=== PATIENT | female | born 1955 ===

== ENCOUNTER 2017-05-26 16:26 | Inpatient (IN) | payer SELFPAY ==
[2017-05-26 17:39] LABS: #Lymphocytes 2.5 thou/uL (1.20-3.40); #Monocytes 0.9 thou/uL (0.11-0.59); #Neutrophils 10.2 thou/uL (1.40-6.50); %Basophils 0.2 % (0.0-1.0); %Eosinophils 0.1 % (0.0-10.0); %Lymphocytes 18.5 % (21.0-51.0); %Monocytes 6.5 % (0.0-10.0); Hematocrit 51.5 % (36.0-47.0); Mean Platelet Volume 9.6 fL (7.4-10.4); Red Blood Cell (RBC) Count 5.33 mill/uL (4.20-5.40); White Blood Cell (WBC) Count 13.6 thou/uL (4.8-10.8)
[2017-05-26 17:55] LABS: Lactic Acid - Sepsis 2.7 mmol/L (0.5-2.2)
[2017-05-26 17:57] LABS: ALT (SGPT) 38 U/L (8-55); AST (SGOT) 27 U/L (5-34); Alkaline Phosphatase 185 U/L (40-150); Anion Gap 17 mmol/L (10-20); BUN (Urea Nitrogen) 17 mg/dL (9.8-20.1); Bilirubin, Total 0.4 mg/dL (0.2-1.2); Calc. Creatinine Clearance 0 mL/min (70-130); Calcium 8.3 mg/dL (7.8-10.44); Carbon Dioxide 24 mmol/L (22-29); Chloride 115 mmol/L (98-107); Estimated GFR-MDRD 46; Globulin 4.7 g/dL (2.4-3.5); Protein, Total 7.8 g/dL (6.0-8.3)
[2017-05-26] MEDS ORDERED: Acetaminophen 325 MG TAB PO PRN (19:41)
[2017-05-26] MEDS ORDERED: Dextrose 5% in Water 1,000 ML IV PRN (19:41)
[2017-05-26] MEDS ORDERED: Ondansetron HCl/PF 4 MG/2 ML Vial IVP PRN (19:41)
[2017-05-26] MEDS ORDERED: Dextrose 50% Abboject 50 ML SYRINGE SLOW IVP PRN (19:41)
[2017-05-26 19:43] LABS: Acetaminophen Less than 6.0 mcg/mL (10.0-30.0); Salicylate Less than 8.0 mg/dL (15.0-30.0)
[2017-05-26 19:55] LABS: Bilirubin Negative (Negative); Blood, Urine Moderate (Negative); Glucose, Urine (Dipstick) >=1000 mg/dL (Negative); Ketone, Urine 15 mg/dL (Negative); Nitrite Positive (Negative); Protein, Urine (Dipstick) 30 mg/dL (Neg-Trace)
[2017-05-26] MEDS ORDERED: hydrALAZINE 20 MG/ML VIAL SLOW IVP PRN (19:55)
[2017-05-26 20:01] LABS: Bacteria/HPF 4+ HPF (None Seen); Hyaline Casts/LPF 0-3 HYALINE CAST LPF (0-3 Hyaline); Squamous Epithelial 0-3 HPF (0-3)
[2017-05-26 20:05] LABS: Amphetamine Detected (NotDetected); Methadone Not Detected (NotDetected); Methamphetamine Detected (NotDetected)
[2017-05-26] MEDS ORDERED: Lorazepam 2 MG/ML VIAL SLOW IVP PRN (20:25)
[2017-05-26 20:28] VITALS: BMI 25.1
[2017-05-26 20:30] LABS: Lactic Acid - Sepsis 2.1 mmol/L (0.5-2.2)
--- NOTE | 2017-05-26 20:34 | CT ---
CT OF HEAD NONCONTRAST: 05/26/17 No prior comparison. CLINICAL HISTORY: Altered mental status. FINDINGS: Patient motion degrades image quality and limits assessment. There is encephalomalacia of the right occipital lobe and multifocal cavitary lacunar infarction involving the right cerebellar hemisphere. There is mild chronic microvascular ischemic disease of the cerebral white matter. Parenchymal atro phy is present with compensatory dilatation of ventricular system. IMPRESSION: 1. No acute intracranial hemorrhage or mass effect. 2. Atrophy, chronic ischemic disease and multifocal remote infarctions. POS: [facility]
[2017-05-26] MEDS: Sodium Chloride 0.45% 1,000 ML IV SCH (20:35)
[2017-05-26 20:40] LABS: Troponin I Less than 0.010 ng/mL (< 0.028)
[2017-05-26] MEDS: Famotidine/PF 20 mg/2ml Vial SLOW IVP SCH (20:54)
[2017-05-26] MEDS: Cefepime 2 GM, Syringe 2.5 ML in Sterile Water 10 ML SLOW IVP SCH (20:54)
[2017-05-26] MEDS: Docusate 100 MG CAP PO SCH (20:54)
[2017-05-26] MEDS ORDERED: Cefepime 2 GM in Sodium Chloride 0.9% 100 ML IVPB SCH (21:00)
[2017-05-27] MEDS ORDERED: HumaLOG 300 UNITS/3 ML VIAL SC SCH ×2 (01:30→01:45)
[2017-05-27 02:15] LABS: #Basophils 0.1 thou/uL (0.0-0.2); #Lymphocytes 2.6 thou/uL (1.20-3.40); #Monocytes 1.1 thou/uL (0.11-0.59); #Neutrophils 11.6 thou/uL (1.40-6.50); %Basophils 0.4 % (0.0-1.0); %Eosinophils 0.2 % (0.0-10.0); %Monocytes 7.1 % (0.0-10.0); Hematocrit 48.4 % (36.0-47.0); Mean Platelet Volume 9.9 fL (7.4-10.4); Red Blood Cell (RBC) Count 4.98 mill/uL (4.20-5.40); White Blood Cell (WBC) Count 15.4 thou/uL (4.8-10.8)
--- NOTE | 2017-05-27 02:24 | HP ---
CHIEF COMPLAINT: Altered mental state. HISTORY OF PRESENT ILLNESS: This is a 61-year-old pleasant lady who was apparently in usual state o f health, was brought in by the family for altered mental state to [facility], out there, she had init ial evaluation and was found to have urinary tract infection and evidence of amphetamines in her sys tem and she was given one dose of vancomycin, Rocephin, and 15 units of IV insulin for the high bloo d sugar and 2 liters and sent out here for further evaluation and treatment. She is still lethargic and most of the history is obtained from the ER physician and the chart. PAST MEDICAL HISTORY: Significant for diabetes mellitus, bipolar disorder, back pain, depression, G ERD, hypertension, hypothyroidism, sleep apnea, hepatitis C, and schizophrenia. SOCIAL HISTORY: Positive for drug use like cocaine, maybe history of IV drug use too. FAMILY HISTORY: Cannot be obtained. PAST SURGICAL HISTORY: Not obtained. MEDICATIONS: Please see MAR. ALLERGIES: Cannot be obtained. REVIEW OF SYSTEM: Cannot be obtained as patient is still lethargic. The patient is not cooperative . PHYSICAL EXAMINATION: VITAL SIGNS: Blood pressure is 121/66, pulse is 103, respirations 18, temperature afebrile. GENERAL: Patient is lying in bed, tachycardic with altered mental status and lethargic. She opens and moans to painful stimuli. HEENT: Atraumatic, normocephalic. Pupils equally round, react to light. Extraocular movements are intact. Mucous membranes are extremely dry. NECK: No JVD. CHEST: Breath sounds. There are no rales or rhonchi. HEART: S1, S2 normal, no murmur, but tachycardic. ABDOMEN: Soft. Bowel sounds present. EXTREMITIES: No cyanosis, clubbing, or edema. Distal pulses present. NEUROLOGIC: Cannot be evaluated. LABORATORY AND IMAGING DATA: CT head is pending. EKG shows tachycardia. Potassium is 3.6, creatin ine is 1.2, albumin is 3.1. Lactic acid is 4, which has come down to 2.7. WBC count is 13.6, hemog lobin is 16. ASSESSMENT AND PLAN: 1. Altered mental state, possibly secondary to drug use. We will repeat urine drug screening. We will do urine culture, blood culture, and follow CT scan results. We will admit the patient to the [facility] for close monitoring. 2. History of methamphetamine use. We will monitor the patient and use p.r.n. Ativan if the patie nt gets agitated. 3. Diabetes mellitus, noncompliance with medication noted from the chart. We will do insulin. The patient already got 15 units of IV insulin. We will do moderate sliding scale and check Accu-Cheks . 4. Lactic acidosis, possibly secondary to poor circulation and we will monitor that and do the need for urinary tract infection with early sepsis. We will do IV antibiotics, blood culture, urine cul ture. 5. Hypernatremia. We will do half normal saline and monitor the sodium. 6. Tachycardia, possibly secondary to dehydrate state. We will do IV fluids. We will also monitor troponin. 7. History of drug use, history of hepatitis C, history of schizophrenia, history of bipolar. We w ill monitor the patient for tonight and obtain some more history when the patient is more awake. 8. We will do sequential compression devices for deep vein thrombosis prophylaxis for now.
[2017-05-27 02:37] LABS: Troponin I 0.012 ng/mL (< 0.028)
[2017-05-27 02:38] LABS: ALT (SGPT) 35 U/L (8-55); AST (SGOT) 33 U/L (5-34); Alkaline Phosphatase 159 U/L (40-150); Anion Gap 11 mmol/L (10-20); BUN (Urea Nitrogen) 16 mg/dL (9.8-20.1); Bilirubin, Total 0.5 mg/dL (0.2-1.2); Calc. Creatinine Clearance 65 mL/min (70-130); Calcium 8.6 mg/dL (7.8-10.44); Carbon Dioxide 26 mmol/L (22-29); Chloride 123 mmol/L (98-107); Estimated GFR-MDRD 62; Globulin 4.4 g/dL (2.4-3.5); Protein, Total 7.3 g/dL (6.0-8.3)
[2017-05-27] MEDS: Sodium Chloride 0.45% 1,000 ML IV SCH ×2 (04:56→16:12)
--- NOTE | 2017-05-27 08:00 | RAD ---
SINGLE VIEW OF THE CHEST: Comparison: None. History: Altered mental status, shortness of breath. FINDINGS: Single view of the chest shows a normal sized cardiomediastinal silhouette. There is no evidence of consolidation, mass, or pleural effusion. The bones are unremarkable. IMPRESSION: No evidence of acute cardiopulmonary disease. POS: [facility]
[2017-05-27] MEDS: Cefepime 2 GM, Syringe 2.5 ML in Sterile Water 10 ML SLOW IVP SCH ×2 (10:52→20:21)
[2017-05-27] MEDS: Famotidine/PF 20 mg/2ml Vial SLOW IVP SCH ×2 (10:53→20:21)
[2017-05-27] MEDS: Docusate 100 MG CAP PO SCH ×2 (10:54→20:21)
--- NOTE | 2017-05-27 12:34 | PDOC.PN ---
- Subjective Encounter Start Date: 05/27/17 Encounter Start Time: 09:00 Pt seen for followup re: acute encephalopathy. Denies chest pain, shortness of breath, fevers or chills. - Objective MAR Reviewed: Yes Vital Signs & Weight: Vital Signs (12 hours) Temp Pulse Resp BP Pulse Ox 05/27/17 11:54 97.5 F L 102 H 18 148/92 H 99 05/27/17 08:00 97.6 F 101 H 16 96 05/27/17 07:44 97.6 F 101 H 16 149/92 H 96 05/27/17 04:00 98.0 F 103 H 22 H 134/87 95 05/27/17 03:41 93 L Weight Weight 135 lb 8 oz I&O: 05/26/17 05/27/17 05/28/17 06:59 06:59 06:59 Intake Total 923 Output Total 1200 Balance -277 Result Diagrams: 05/27/17 02:05 05/27/17 02:05 Additional Labs: Accuchecks 05/27/17 05/27/17 05/27/17 11:32 05:49 00:05 POC Glucose 500 H 241 H 400 H EKG Reviewed by me: Yes (Tele: a. [email or web address]) Phys Exam - Physical Examination Constitutional: NAD HEENT: PERRLA, moist MMs, sclera anicteric, oral pharynx no lesions Neck: no nodes, no JVD, supple, full ROM Respiratory: no wheezing, no rales, no rhonchi, clear to auscultation bilateral Cardiovascular: RRR, no rub Gastrointestinal: soft, non-tender, no distention, positive bowel sounds Musculoskeletal: no edema, pulses present Neurological: moves all 4 limbs Lymphatic: no nodes Psychiatric: normal affect Deviation from normal: Oriented to person and place, not to time Skin: no rash, normal turgor, cap refill <2 seconds Dx/Plan (1) Acute encephalopathy Code(s): G93.40 - ENCEPHALOPATHY, UNSPECIFIED Status: Acute (2) DM2 (diabetes mellitus, type 2) Status: Chronic (3) GERD (gastroesophageal reflux disease) Code(s): K21.9 - GASTRO-ESOPHAGEAL REFLUX DISEASE WITHOUT ESOPHAGITIS Status: Chronic (4) HTN (hypertension) Code(s): I10 - ESSENTIAL (PRIMARY) HYPERTENSION Status: Chronic (5) Hypothyroidism Code(s): E03.9 - HYPOTHYROIDISM, UNSPECIFIED Status: Chronic (6) Hepatitis C Code(s): B19.20 - UNSPECIFIED VIRAL HEPATITIS C WITHOUT HEPATIC COMA Status: Chronic (7) Schizophrenia Code(s): F20.9 - SCHIZOPHRENIA, UNSPECIFIED Status: Chronic (8) Methamphetamine abuse Code(s): F15.10 - OTHER STIMULANT ABUSE, UNCOMPLICATED Status: Chronic - Plan continue antibiotics, PT/OT, out of bed/ambulate * . Continue antibiotics, await cultures. Continue accuchecks, insulin sliding scale. Monitor vital signs, titrate antihypertensives as needed. Counseled pt re: cessation of recreational drug use. Review of Systems - Review of Systems Constitutional: negative: Fever, Chills, Sweats, Weakness, Malaise Respiratory: negative: Cough, Dry, Shortness of Breath, Hemoptysis, SOB with Excertion, Pleuritic Pain, Sputum, Wheezing Cardiovascular: negative: Chest Pain, Palpitations, Orthopnea, Paroxysmal Noc. Dyspnea, Edema, Light Headedness Gastrointestinal: negative: Nausea, Vomiting, Abdominal Pain, Diarrhea, Constipation, Melena, Hematochezia Genitourinary: negative: Dysuria, Frequency, Incontinence, Hematuria, Retention - Medications/Allergies Allergies/Adverse Reactions: Allergies Allergy/AdvReac Type Severity Reaction Status Date / Time No Known Drug Allergies Allergy Verified 05/27/17 01:24 Medications: Current Medications Acetaminophen (Tylenol) 650 mg PO Q4H PRN PRN Reason: Headache/Fever or Pain Hydrocodone Bitart/Acetaminophen ([place] 5/325) 1 tab PO Q4H PRN PRN Reason: Moderate Pain (4-6) Dextrose/Water (Dextrose 50%) 25 gm SLOW IVP PRN PRN PRN Reason: Hypoglycemia Docusate Sodium (Colace) 100 mg PO BID [facility] Last Admin: 05/27/17 10:54 Dose: Not Given Famotidine (Pepcid) 20 mg SLOW IVP Q12HR [facility] Last Admin: 05/27/17 10:53 Dose: 20 mg Glucagon (Glucagon) 1 mg IM PRN PRN PRN Reason: Hypoglycemia Hydralazine HCl (Apresoline) 10 mg SLOW IVP Q4H PRN PRN Reason: SBP Greater Than 180 Dextrose/Water (D5w) 1,000 mls @ 0 mls/hr IV .Q0M PRN; As Directed PRN Reason: Hypoglycemia Sodium Chloride (1/2 Normal Saline) 1,000 mls @ 100 mls/hr IV .Q10H [facility] Stop: 05/28/17 20:01 Last Admin: 05/27/17 04:56 Dose: 1,000 mls Cefepime HCl 2 gm/ Syringe 2.5 (ml/ Sterile Water) 12.5 mls @ 150 mls/hr SLOW IVP Q12HR [facility] Last Admin: 05/27/17 10:52 Dose: 12.5 mls Influenza Virus Vaccine (Fluzone Quad [id number] Syringe) 0.5 ml IM .ONCE ONE Stop: 05/28/17 09:01 Insulin Human Lispro (Humalog) 0 units SC .MODERATE SLIDING SC PRN PRN Reason: Moderate Correctional Scale Lorazepam (Ativan) 2 mg SLOW IVP Q6H PRN PRN Reason: Agitation Ondansetron HCl (Zofran) 4 mg IVP Q6H PRN PRN Reason: Nausea/Vomiting Pneumococcal Polyvalent Vaccine (Pneumovax 23) 0.5 ml IM .ONCE ONE Stop: 05/28/17 09:01
[2017-05-27] MEDS: HumaLOG 300 UNITS/3 ML VIAL SC PRN ×2 (13:27→17:48)
[2017-05-27] MEDS ORDERED: Cefepime 2 GM, Syringe 2.5 ML in Sterile Water 10 ML SLOW IVP SCH (21:00)
[2017-05-28] MEDS: Sodium Chloride 0.45% 1,000 ML IV SCH ×2 (02:15→12:33)
[2017-05-28 05:14] LABS: #Basophils 0.1 thou/uL (0.0-0.2); #Eosinphils 0.1 thou/uL (0.0-0.7); #Lymphocytes 3.3 thou/uL (1.20-3.40); #Monocytes 0.4 thou/uL (0.11-0.59); #Neutrophils 6.7 thou/uL (1.40-6.50); %Basophils 0.6 % (0.0-1.0); %Eosinophils 0.9 % (0.0-10.0); %Lymphocytes 31.3 % (21.0-51.0); Hematocrit 38.3 % (36.0-47.0); Mean Platelet Volume 9.3 fL (7.4-10.4); Red Blood Cell (RBC) Count 3.95 mill/uL (4.20-5.40); White Blood Cell (WBC) Count 10.6 thou/uL (4.8-10.8)
[2017-05-28 05:27] LABS: ALT (SGPT) 39 U/L (8-55); AST (SGOT) 73 U/L (5-34); Alkaline Phosphatase 137 U/L (40-150); Anion Gap 9 mmol/L (10-20); BUN (Urea Nitrogen) 13 mg/dL (9.8-20.1); Bilirubin, Total 0.7 mg/dL (0.2-1.2); Calc. Creatinine Clearance 90 mL/min (70-130); Carbon Dioxide 25 mmol/L (22-29); Chloride 108 mmol/L (98-107); Estimated GFR-MDRD Greater than 90; Globulin 3.5 g/dL (2.4-3.5)
[2017-05-28] MEDS: Famotidine/PF 20 mg/2ml Vial SLOW IVP SCH ×2 (08:27→20:10)
[2017-05-28] MEDS: Cefepime 2 GM, Syringe 2.5 ML in Sterile Water 10 ML SLOW IVP SCH ×2 (08:27→20:10)
[2017-05-28] MEDS: Docusate 100 MG CAP PO SCH ×2 (08:28→20:10)
[2017-05-28] MEDS ORDERED: FLU VACC QS2017-18 36 mo. & older 0.5 ML SYRINGE IM ONE (09:00)
--- NOTE | 2017-05-28 12:23 | PDOC.PN ---
- Subjective Encounter Start Date: 05/28/17 Encounter Start Time: 08:00 Pt seen for followup re: UTI. More alert today. Denies fevers or chills. No nausea or vomiting. - Objective MAR Reviewed: Yes Vital Signs & Weight: Vital Signs (12 hours) Temp Pulse Resp BP Pulse Ox 05/28/17 08:00 97.6 F 83 16 98 05/28/17 07:05 97.6 F 83 16 130/74 98 05/28/17 04:00 98.2 F 76 20 136/87 99 Weight Weight 135 lb 8 oz I&O: 05/27/17 05/28/17 05/29/17 06:59 06:59 06:59 Intake Total 923 3151 Output Total 1200 600 Balance -277 2551 Result Diagrams: 05/28/17 04:06 05/28/17 04:06 Additional Labs: Accuchecks 05/28/17 05/28/17 05/28/17 12:10 05:53 02:25 POC Glucose 251 H 195 H 228 H 05/27/17 15:59 POC Glucose 303 H EKG Reviewed by me: Yes (Tele: NSR) Phys Exam - Physical Examination Constitutional: NAD HEENT: PERRLA, moist MMs, sclera anicteric, oral pharynx no lesions Neck: no nodes, no JVD, supple, full ROM Respiratory: no wheezing, no rales, no rhonchi, clear to auscultation bilateral Cardiovascular: RRR, no rub Gastrointestinal: soft, non-tender, no distention, positive bowel sounds Musculoskeletal: pulses present Neurological: moves all 4 limbs Lymphatic: no nodes Psychiatric: normal affect Deviation from normal: Oriented to person and place, not to time Skin: no rash, normal turgor, cap refill <2 seconds Dx/Plan (1) UTI (urinary tract infection) Status: Acute (2) Acute encephalopathy Code(s): G93.40 - ENCEPHALOPATHY, UNSPECIFIED Status: Acute (3) DM2 (diabetes mellitus, type 2) Status: Chronic (4) GERD (gastroesophageal reflux disease) Code(s): K21.9 - GASTRO-ESOPHAGEAL REFLUX DISEASE WITHOUT ESOPHAGITIS Status: Chronic (5) HTN (hypertension) Code(s): I10 - ESSENTIAL (PRIMARY) HYPERTENSION Status: Chronic (6) Hypothyroidism Code(s): E03.9 - HYPOTHYROIDISM, UNSPECIFIED Status: Chronic (7) Hepatitis C Code(s): B19.20 - UNSPECIFIED VIRAL HEPATITIS C WITHOUT HEPATIC COMA Status: Chronic (8) Schizophrenia Code(s): F20.9 - SCHIZOPHRENIA, UNSPECIFIED Status: Chronic (9) Methamphetamine abuse Code(s): F15.10 - OTHER STIMULANT ABUSE, UNCOMPLICATED Status: Chronic - Plan PT/OT, out of bed/ambulate, DVT proph w/SCDs * . Klebsiella/Enterobacter UTI, sensitivities pending, continue IV cefepime, follow cultures. Continue accuchecks, insulin sliding scale. Monitor vital signs, titrate antihypertensives as needed. PRN IV hydralazine. Ambulate patient. Review of Systems - Review of Systems Constitutional: negative: Fever, Chills, Sweats, Weakness, Malaise Respiratory: negative: Cough, Dry, Shortness of Breath, Hemoptysis, SOB with Excertion, Pleuritic Pain, Sputum, Wheezing Cardiovascular: negative: Chest Pain, Palpitations, Orthopnea, Paroxysmal Noc. Dyspnea, Edema, Light Headedness Gastrointestinal: negative: Nausea, Vomiting, Abdominal Pain, Diarrhea, Constipation, Melena, Hematochezia Genitourinary: negative: Dysuria, Frequency, Incontinence, Hematuria, Retention - Medications/Allergies Allergies/Adverse Reactions: Allergies Allergy/AdvReac Type Severity Reaction Status Date / Time No Known Drug Allergies Allergy Verified 05/27/17 01:24 Medications: Current Medications Acetaminophen (Tylenol) 650 mg PO Q4H PRN PRN Reason: Headache/Fever or Pain Hydrocodone Bitart/Acetaminophen ([place] 5/325) 1 tab PO Q4H PRN PRN Reason: Moderate Pain (4-6) Dextrose/Water (Dextrose 50%) 25 gm SLOW IVP PRN PRN PRN Reason: Hypoglycemia Docusate Sodium (Colace) 100 mg PO BID [facility] Last Admin: 05/28/17 08:28 Dose: Not Given Famotidine (Pepcid) 20 mg SLOW IVP Q12HR [facility] Last Admin: 05/28/17 08:27 Dose: 20 mg Glucagon (Glucagon) 1 mg IM PRN PRN PRN Reason: Hypoglycemia Hydralazine HCl (Apresoline) 10 mg SLOW IVP Q4H PRN PRN Reason: SBP Greater Than 180 Dextrose/Water (D5w) 1,000 mls @ 0 mls/hr IV .Q0M PRN; As Directed PRN Reason: Hypoglycemia Sodium Chloride (1/2 Normal Saline) 1,000 mls @ 100 mls/hr IV .Q10H [facility] Stop: 05/28/17 20:01 Last Admin: 05/28/17 02:15 Dose: 1,000 mls Cefepime HCl 2 gm/ Syringe 2.5 (ml/ Sterile Water) 12.5 mls @ 150 mls/hr SLOW IVP Q12HR [facility] Last Admin: 05/28/17 08:27 Dose: 12.5 mls Insulin Human Lispro (Humalog) 0 units SC .MODERATE SLIDING SC PRN PRN Reason: Moderate Correctional Scale Last Admin: 05/27/17 17:48 Dose: 8 units Lorazepam (Ativan) 2 mg SLOW IVP Q6H PRN PRN Reason: Agitation Ondansetron HCl (Zofran) 4 mg IVP Q6H PRN PRN Reason: Nausea/Vomiting
[2017-05-28] MEDS ORDERED: cefTRIAXone\\ROCEPHIN 1 GM in Sodium Chloride 0.9% 100 ML IVPB SCH (12:30)
[2017-05-28] MEDS: HumaLOG 300 UNITS/3 ML VIAL SC PRN ×2 (12:33→18:26)
[2017-05-29] MEDS: HumaLOG 300 UNITS/3 ML VIAL SC PRN ×4 (00:06→21:53)
[2017-05-29] MEDS: Famotidine/PF 20 mg/2ml Vial SLOW IVP SCH ×2 (09:20→20:40)
[2017-05-29] MEDS: Docusate 100 MG CAP PO SCH ×2 (09:20→20:40)
[2017-05-29] MEDS: Cefepime 2 GM, Syringe 2.5 ML in Sterile Water 10 ML SLOW IVP SCH ×2 (09:29→20:40)
--- NOTE | 2017-05-29 13:44 | PDOC.PN ---
- Subjective Encounter Start Date: 05/29/17 Encounter Start Time: 08:00 Pt seen for followup re: UTI. Denies chest pain, shortness of breath, fevers or chills. - Objective MAR Reviewed: Yes Vital Signs & Weight: Vital Signs (12 hours) Temp Pulse Resp BP Pulse Ox 05/29/17 08:00 98.2 F 80 18 94 L 05/29/17 04:29 98.2 F 80 18 142/81 H 93 L Weight Weight 135 lb 8 oz I&O: 05/28/17 05/29/17 05/30/17 06:59 06:59 06:59 Intake Total 3151 1600 240 Output Total 600 Balance 2551 1600 240 Result Diagrams: 05/28/17 04:06 05/28/17 04:06 Additional Labs: Accuchecks 05/29/17 05/28/17 05/28/17 06:20 23:41 16:58 POC Glucose 280 H 367 H 246 H EKG Reviewed by me: Yes (Tele: NSR) Phys Exam - Physical Examination Constitutional: NAD HEENT: moist MMs Neck: no JVD Respiratory: clear to auscultation bilateral Cardiovascular: RRR, no rub Gastrointestinal: soft, non-tender, positive bowel sounds Musculoskeletal: pulses present Neurological: moves all 4 limbs Psychiatric: normal affect Deviation from normal: Oriented to person and place only Skin: no rash Dx/Plan (1) UTI (urinary tract infection) Status: Acute (2) Acute encephalopathy Code(s): G93.40 - ENCEPHALOPATHY, UNSPECIFIED Status: Acute (3) DM2 (diabetes mellitus, type 2) Status: Chronic (4) GERD (gastroesophageal reflux disease) Code(s): K21.9 - GASTRO-ESOPHAGEAL REFLUX DISEASE WITHOUT ESOPHAGITIS Status: Chronic (5) HTN (hypertension) Code(s): I10 - ESSENTIAL (PRIMARY) HYPERTENSION Status: Chronic (6) Hypothyroidism Code(s): E03.9 - HYPOTHYROIDISM, UNSPECIFIED Status: Chronic (7) Hepatitis C Code(s): B19.20 - UNSPECIFIED VIRAL HEPATITIS C WITHOUT HEPATIC COMA Status: Chronic (8) Schizophrenia Code(s): F20.9 - SCHIZOPHRENIA, UNSPECIFIED Status: Chronic (9) Methamphetamine abuse Code(s): F15.10 - OTHER STIMULANT ABUSE, UNCOMPLICATED Status: Chronic - Plan continue antibiotics, PT/OT, out of bed/ambulate * . Continue accuchecks, insulin. Change antibiotics to oral. Monitor vital signs and titrate antihypertensives as needed. Transfer to medical floor. Review of Systems - Review of Systems Constitutional: negative: Fever, Chills, Sweats, Weakness, Malaise Respiratory: negative: Cough, Dry, Shortness of Breath, Hemoptysis, SOB with Excertion, Pleuritic Pain, Sputum, Wheezing Cardiovascular: negative: Chest Pain, Palpitations, Orthopnea, Paroxysmal Noc. Dyspnea, Edema, Light Headedness - Medications/Allergies Allergies/Adverse Reactions: Allergies Allergy/AdvReac Type Severity Reaction Status Date / Time No Known Drug Allergies Allergy Verified 05/27/17 01:24 Medications: Current Medications Acetaminophen (Tylenol) 650 mg PO Q4H PRN PRN Reason: Headache/Fever or Pain Hydrocodone Bitart/Acetaminophen ([place] 5/325) 1 tab PO Q4H PRN PRN Reason: Moderate Pain (4-6) Dextrose/Water (Dextrose 50%) 25 gm SLOW IVP PRN PRN PRN Reason: Hypoglycemia Docusate Sodium (Colace) 100 mg PO BID [facility] Last Admin: 05/29/17 09:20 Dose: Not Given Famotidine (Pepcid) 20 mg SLOW IVP Q12HR [facility] Last Admin: 05/29/17 09:20 Dose: 20 mg Glucagon (Glucagon) 1 mg IM PRN PRN PRN Reason: Hypoglycemia Hydralazine HCl (Apresoline) 10 mg SLOW IVP Q4H PRN PRN Reason: SBP Greater Than 180 Dextrose/Water (D5w) 1,000 mls @ 0 mls/hr IV .Q0M PRN; As Directed PRN Reason: Hypoglycemia Cefepime HCl 2 gm/ Syringe 2.5 (ml/ Sterile Water) 12.5 mls @ 150 mls/hr SLOW IVP Q12HR [facility] Last Admin: 05/29/17 09:29 Dose: 12.5 mls Insulin Human Lispro (Humalog) 0 units SC .MODERATE SLIDING SC PRN PRN Reason: Moderate Correctional Scale Last Admin: 05/29/17 12:08 Dose: 10 units Insulin Human Lispro (Humalog) 0 units SC .BEDTIME SLIDING SC PRN; Protocol PRN Reason: BEDTIME SLIDING SCALE Last Admin: 11/10/17 00:06 Dose: 5 unit Lorazepam (Ativan) 2 mg SLOW IVP Q6H PRN PRN Reason: Agitation Ondansetron HCl (Zofran) 4 mg IVP Q6H PRN PRN Reason: Nausea/Vomiting
[2017-05-29] MEDS: HYDROcodone/Acetaminophen 5/325 mg Tablet PO PRN (17:47)
[2017-05-30] MEDS: HYDROcodone/Acetaminophen 5/325 mg Tablet PO PRN ×3 (02:06→17:54)
[2017-05-30] MEDS: HumaLOG 300 UNITS/3 ML VIAL SC PRN ×2 (06:34→19:51)
[2017-05-30] MEDS: Cefepime 2 GM, Syringe 2.5 ML in Sterile Water 10 ML SLOW IVP SCH ×2 (09:02→19:50)
[2017-05-30] MEDS: Famotidine/PF 20 mg/2ml Vial SLOW IVP SCH ×2 (09:02→19:49)
[2017-05-30] MEDS: Docusate 100 MG CAP PO SCH (09:16)
--- NOTE | 2017-05-30 11:18 | PDOC.PN ---
- Subjective Encounter Start Date: 05/30/17 Encounter Start Time: 09:30 -: old records requested/rev Patient seen and examined. No new complaints. No overnight events - Objective MAR Reviewed: Yes Vital Signs & Weight: Vital Signs (12 hours) Temp Pulse Resp BP Pulse Ox 05/30/17 08:00 98.1 F 85 16 106/69 95 05/30/17 04:00 99.0 F 100 20 116/75 95 Weight Weight 135 lb 8 oz I&O: 05/29/17 05/30/17 05/31/17 06:59 06:59 06:59 Intake Total 1600 1470 240 Balance 1600 1470 240 Result Diagrams: 05/28/17 04:06 05/28/17 04:06 Additional Labs: Accuchecks 05/30/17 05/29/17 05/29/17 05:12 20:13 15:49 POC Glucose 413 H 357 H 424 H 05/29/17 11:02 POC Glucose 395 H Phys Exam - Physical Examination Constitutional: NAD HEENT: PERRLA, moist MMs, sclera anicteric Neck: no JVD, supple Respiratory: no wheezing, no rales, no rhonchi Cardiovascular: RRR, no significant murmur, no rub Gastrointestinal: soft, non-tender, no distention, positive bowel sounds Musculoskeletal: no edema, pulses present Neurological: non-focal, normal sensation, moves all 4 limbs Lymphatic: no nodes Psychiatric: normal affect, A&O x 3 Skin: no rash, normal turgor Dx/Plan (1) Acute encephalopathy Code(s): G93.40 - ENCEPHALOPATHY, UNSPECIFIED Status: Resolved (2) Hypernatremia Code(s): E87.0 - HYPEROSMOLALITY AND HYPERNATREMIA Status: Resolved (3) Lactic acidosis Code(s): E87.2 - ACIDOSIS Status: Resolved (4) UTI (urinary tract infection) Status: Acute (5) DM2 (diabetes mellitus, type 2) Status: Chronic (6) GERD (gastroesophageal reflux disease) Code(s): K21.9 - GASTRO-ESOPHAGEAL REFLUX DISEASE WITHOUT ESOPHAGITIS Status: Chronic (7) HTN (hypertension) Code(s): I10 - ESSENTIAL (PRIMARY) HYPERTENSION Status: Chronic (8) Hepatitis C Code(s): B19.20 - UNSPECIFIED VIRAL HEPATITIS C WITHOUT HEPATIC COMA Status: Chronic (9) Hypothyroidism Code(s): E03.9 - HYPOTHYROIDISM, UNSPECIFIED Status: Chronic (10) Methamphetamine abuse Code(s): F15.10 - OTHER STIMULANT ABUSE, UNCOMPLICATED Status: Chronic (11) Schizophrenia Code(s): F20.9 - SCHIZOPHRENIA, UNSPECIFIED Status: Chronic - Plan cont current plan of care, continue antibiotics * diabetes is not controlled, will start insulin 70/30 15 unit SC bid * continue cefepime, on discharge will change to cipro. * medication reviewed as below * symptomatic treatment * [facility] evaluation * will consider discharge tomorrow, today will adjust insulin dose * repeat labs tomorrow Review of Systems - Review of Systems ENT: negative: Ear Pain, Ear Discharge, Nose Pain, Nose Discharge, Nose Congestion, Mouth Pain, Mouth Swelling, Throat Pain, Throat Swelling, Other Respiratory: negative: Cough, Dry, Shortness of Breath, Hemoptysis, SOB with Excertion, Pleuritic Pain, Sputum, Wheezing Cardiovascular: negative: Chest Pain, Palpitations, Orthopnea, Paroxysmal Noc. Dyspnea, Edema, Light Headedness, Other Gastrointestinal: negative: Nausea, Vomiting, Abdominal Pain, Diarrhea, Constipation, Melena, Hematochezia, Other Genitourinary: negative: Dysuria, Frequency, Incontinence, Hematuria, Retention , Other Musculoskeletal: negative: Neck Pain, Shoulder Pain, Arm Pain, Back Pain, Hand Pain, Leg Pain, Foot Pain, Other Skin: negative: Rash, Lesions, Sudhir, Bruising, Other - Medications/Allergies Allergies/Adverse Reactions: Allergies Allergy/AdvReac Type Severity Reaction Status Date / Time No Known Drug Allergies Allergy Verified 05/27/17 01:24 Medications: Current Medications Acetaminophen (Tylenol) 650 mg PO Q4H PRN PRN Reason: Headache/Fever or Pain Hydrocodone Bitart/Acetaminophen ([place] 5/325) 1 tab PO Q4H PRN PRN Reason: Moderate Pain (4-6) Last Admin: 05/30/17 09:01 Dose: 1 tab Dextrose/Water (Dextrose 50%) 25 gm SLOW IVP PRN PRN PRN Reason: Hypoglycemia Docusate Sodium (Colace) 100 mg PO BID [facility] Last Admin: 05/30/17 09:16 Dose: Not Given Famotidine (Pepcid) 20 mg SLOW IVP Q12HR [facility] Last Admin: 05/30/17 09:02 Dose: 20 mg Glucagon (Glucagon) 1 mg IM PRN PRN PRN Reason: Hypoglycemia Hydralazine HCl (Apresoline) 10 mg SLOW IVP Q4H PRN PRN Reason: SBP Greater Than 180 Dextrose/Water (D5w) 1,000 mls @ 0 mls/hr IV .Q0M PRN; As Directed PRN Reason: Hypoglycemia Cefepime HCl 2 gm/ Syringe 2.5 (ml/ Sterile Water) 12.5 mls @ 150 mls/hr SLOW IVP Q12HR [facility] Last Admin: 05/30/17 09:02 Dose: 12.5 mls Insulin Human Isoph/Insulin Regular (Humulin 70/30) 15 units SC B[facility] Insulin Human Lispro (Humalog) 0 units SC .MODERATE SLIDING SC PRN PRN Reason: Moderate Correctional Scale Last Admin: 05/30/17 06:34 Dose: 10 units Insulin Human Lispro (Humalog) 0 units SC .BEDTIME SLIDING SC PRN; Protocol PRN Reason: BEDTIME SLIDING SCALE Last Admin: 05/29/17 21:53 Dose: 5 unit Lorazepam (Ativan) 2 mg SLOW IVP Q6H PRN PRN Reason: Agitation Last Admin: 05/29/17 21:53 Dose: 2 mg Ondansetron HCl (Zofran) 4 mg IVP Q6H PRN PRN Reason: Nausea/Vomiting
[2017-05-30] MEDS: Insulin NPH/Reg Insulin Hm 300 UNITS/3 ML VIAL SC SCH ×2 (12:07→17:55)
[2017-05-30] MEDS ORDERED: Haloperidol Lactate 5 MG/ML VIAL IM SCH (19:45)
[2017-05-31] MEDS: HYDROcodone/Acetaminophen 5/325 mg Tablet PO PRN ×2 (01:10→06:16)
[2017-05-31] MEDS: Docusate 100 MG CAP PO SCH ×2 (01:12→07:58)
[2017-05-31 06:11] LABS: Hemoglobin A1c 15.3 % (4.0-6.0)
[2017-05-31 06:12] LABS: #Basophils 0.1 thou/uL (0.0-0.2); #Eosinphils 0.2 thou/uL (0.0-0.7); #Lymphocytes 2.6 thou/uL (1.20-3.40); #Monocytes 0.4 thou/uL (0.11-0.59); %Basophils 0.7 % (0.0-1.0); %Lymphocytes 35.7 % (21.0-51.0); %Monocytes 5.9 % (0.0-10.0); Hematocrit 41.2 % (36.0-47.0); Red Blood Cell (RBC) Count 4.33 mill/uL (4.20-5.40); White Blood Cell (WBC) Count 7.4 thou/uL (4.8-10.8)
[2017-05-31 06:31] LABS: ALT (SGPT) 51 U/L (8-55); AST (SGOT) 61 U/L (5-34); Alkaline Phosphatase 142 U/L (40-150); Anion Gap 14 mmol/L (10-20); BUN (Urea Nitrogen) 9 mg/dL (9.8-20.1); Bilirubin, Total 0.6 mg/dL (0.2-1.2); Calc. Creatinine Clearance 85 mL/min (70-130); Calcium 8.6 mg/dL (7.8-10.44); Carbon Dioxide 20 mmol/L (22-29); Chloride 105 mmol/L (98-107); Estimated GFR-MDRD 87; Globulin 3.9 g/dL (2.4-3.5); Protein, Total 6.5 g/dL (6.0-8.3)
[2017-05-31] MEDS: Insulin NPH/Reg Insulin Hm 300 UNITS/3 ML VIAL SC SCH ×2 (07:57→17:24)
[2017-05-31] MEDS ORDERED: Lisinopril 2.5 MG TAB PO SCH (09:00)
[2017-05-31] MEDS: Lisinopril 5 MG TAB PO SCH (09:37)
[2017-05-31] MEDS: Famotidine 20 MG TAB PO SCH ×2 (09:37→21:27)
[2017-05-31] MEDS ORDERED: Cipro 250 MG TAB PO SCH (09:45)
[2017-05-31] MEDS: Cefepime 2 GM, Syringe 2.5 ML in Sterile Water 10 ML SLOW IVP SCH (10:00)
[2017-05-31] MEDS: HumaLOG 300 UNITS/3 ML VIAL SC PRN ×3 (11:27→21:28)
[2017-05-31] MEDS ORDERED: ALPRAZolam 1 MG TAB PO PRN (12:00)
[2017-05-31] MEDS: Fluconazole 100 MG TAB PO SCH (12:05)
--- NOTE | 2017-05-31 13:08 | PDOC.PN ---
- Subjective Encounter Start Date: 05/31/17 Encounter Start Time: 09:40 Patient seen and examined. c/o rash in perineum, No overnight events - Objective MAR Reviewed: Yes Vital Signs & Weight: Vital Signs (12 hours) Temp Pulse Resp BP BP Pulse Ox 05/31/17 09:37 87 137/82 05/31/17 08:49 98.3 F 87 20 137/82 95 05/31/17 08:00 98.3 F 87 20 05/31/17 05:25 91 L Weight Weight 135 lb 8 oz I&O: 05/30/17 05/31/17 06/01/17 06:59 06:59 06:59 Intake Total 1470 1120 Balance 1470 1120 Result Diagrams: 05/31/17 04:40 05/31/17 04:40 Additional Labs: Accuchecks 05/31/17 05/31/17 05/30/17 11:27 05:53 19:50 POC Glucose 348 H 209 H 377 H 05/30/17 16:57 POC Glucose 314 H Phys Exam - Physical Examination Constitutional: NAD HEENT: PERRLA, moist MMs, sclera anicteric Neck: no JVD, supple Respiratory: no wheezing, no rales, no rhonchi Cardiovascular: RRR, no significant murmur, no rub Gastrointestinal: soft, non-tender, no distention, positive bowel sounds Musculoskeletal: no edema, pulses present Neurological: non-focal, normal sensation Psychiatric: normal affect, A&O x 3 Skin: normal turgor Deviation from normal: tinea infection Dx/Plan (1) Acute encephalopathy Code(s): G93.40 - ENCEPHALOPATHY, UNSPECIFIED Status: Resolved (2) Hypernatremia Code(s): E87.0 - HYPEROSMOLALITY AND HYPERNATREMIA Status: Resolved (3) Lactic acidosis Code(s): E87.2 - ACIDOSIS Status: Resolved (4) UTI (urinary tract infection) Status: Acute (5) DM2 (diabetes mellitus, type 2) Status: Chronic (6) GERD (gastroesophageal reflux disease) Code(s): K21.9 - GASTRO-ESOPHAGEAL REFLUX DISEASE WITHOUT ESOPHAGITIS Status: Chronic (7) HTN (hypertension) Code(s): I10 - ESSENTIAL (PRIMARY) HYPERTENSION Status: Chronic (8) Hepatitis C Code(s): B19.20 - UNSPECIFIED VIRAL HEPATITIS C WITHOUT HEPATIC COMA Status: Chronic (9) Hypothyroidism Code(s): E03.9 - HYPOTHYROIDISM, UNSPECIFIED Status: Chronic (10) Methamphetamine abuse Code(s): F15.10 - OTHER STIMULANT ABUSE, UNCOMPLICATED Status: Chronic (11) Schizophrenia Code(s): F20.9 - SCHIZOPHRENIA, UNSPECIFIED Status: Chronic (12) Tinea Code(s): B35.9 - DERMATOPHYTOSIS, UNSPECIFIED Status: Acute - Plan cont current plan of care, continue antibiotics, social director * add diflucan * nystatin topical application * medication reviewed as below * symptomatic treatment * home medication reconciled * she will need ride for going home * [facility] evaluation tomorrow morning * plan for discharge tomorrow. Review of Systems - Review of Systems ENT: negative: Ear Pain, Ear Discharge, Nose Pain, Nose Discharge, Nose Congestion, Mouth Pain, Mouth Swelling, Throat Pain, Throat Swelling, Other Respiratory: negative: Cough, Dry, Shortness of Breath, Hemoptysis, SOB with Excertion, Pleuritic Pain, Sputum, Wheezing Cardiovascular: negative: Chest Pain, Palpitations, Orthopnea, Paroxysmal Noc. Dyspnea, Edema, Light Headedness, Other Gastrointestinal: negative: Nausea, Vomiting, Abdominal Pain, Diarrhea, Constipation, Melena, Hematochezia, Other Genitourinary: negative: Dysuria, Frequency, Incontinence, Hematuria, Retention , Other Musculoskeletal: negative: Neck Pain, Shoulder Pain, Arm Pain, Back Pain, Hand Pain, Leg Pain, Foot Pain, Other Skin: Rash. negative: Lesions, Sudhir, Bruising, Other - Medications/Allergies Allergies/Adverse Reactions: Allergies Allergy/AdvReac Type Severity Reaction Status Date / Time No Known Drug Allergies Allergy Verified 05/27/17 01:24 Medications: Current Medications Acetaminophen (Tylenol) 650 mg PO Q4H PRN PRN Reason: Headache/Fever or Pain Hydrocodone Bitart/Acetaminophen (Viper 5/325) 1 tab PO Q4H PRN PRN Reason: Moderate Pain (4-6) Last Admin: 05/31/17 06:16 Dose: 1 tab Alprazolam (Xanax) 2 mg PO TID PRN PRN Reason: Agitation Atorvastatin Calcium (Lipitor) [address] [facility] Ciprofloxacin (Cipro) 500 mg PO BID@0600,2000 [facility] Dextrose/Water (Dextrose 50%) 25 gm SLOW IVP PRN PRN PRN Reason: Hypoglycemia Docusate Sodium (Colace) [address] [facility] Last Admin: 05/31/17 07:58 Dose: Not Given Duloxetine HCl (Cymbalta) [address] [facility] Famotidine (Pepcid) [address] [facility] Last Admin: 05/31/17 09:37 Dose: 20 mg Fluconazole (Diflucan) [address] [facility] Last Admin: 05/31/17 12:05 Dose: 100 mg Gabapentin (Neurontin) 2,[address] [facility] Glucagon (Glucagon) 1 mg IM PRN PRN PRN Reason: Hypoglycemia Hydralazine HCl (Apresoline) 10 mg SLOW IVP Q4H PRN PRN Reason: SBP Greater Than 180 Hydroxyzine HCl (Atarax) [address] [facility] Dextrose/Water (D5w) 1,000 mls @ 0 mls/hr IV .Q0M PRN; As Directed PRN Reason: Hypoglycemia Insulin Human Isoph/Insulin Regular (Humulin 70/30) 25 units SC BID-[facility] Insulin Human Lispro (Humalog) 0 units SC .MODERATE SLIDING SC PRN PRN Reason: Moderate Correctional Scale Last Admin: 05/31/17 11:27 Dose: 8 units Insulin Human Lispro (Humalog) 0 units SC .BEDTIME SLIDING SC PRN; Protocol PRN Reason: BEDTIME SLIDING SCALE Last Admin: 05/30/17 19:51 Dose: 5 unit Lisinopril (Zestril) [address] [facility] Last Admin: 05/31/17 09:37 Dose: 5 mg Lorazepam (Ativan) 2 mg SLOW IVP Q6H PRN PRN Reason: Agitation Last Admin: 05/29/17 21:53 Dose: 2 mg Metformin HCl (Glucophage) 500 mg PO BID-[facility] Metoprolol Succinate (Toprol Xl) [address] [facility] Mirabegron (Myrbetriq Er) [address] [facility] Nystatin (Mycostatin Powder) [address] [facility] Ondansetron HCl (Zofran) 4 mg IVP Q6H PRN PRN Reason: Nausea/Vomiting Trazodone HCl (Desyrel) 150 mg [address] [facility] Ziprasidone (Geodon) 20 mg PO BID-[facility]
[2017-05-31] MEDS: Nystatin Powder 15 GM BOT TOP SCH ×2 (13:47→21:31)
[2017-05-31] MEDS: hydrOXYzine 25 MG TAB PO SCH ×2 (14:43→21:26)
[2017-05-31] MEDS: metFORMIN 500 MG TAB PO SCH (17:20)
[2017-05-31] MEDS ORDERED: Gabapentin 400 MG CAP PO SCH (21:00)
[2017-05-31] MEDS ORDERED: Atorvastatin Calcium 20 MG TAB PO SCH (21:00)
[2017-05-31] MEDS ORDERED: traZODone HCl 150 MG TAB PO SCH (21:00)
[2017-05-31] MEDS: Cipro 250 MG TAB PO SCH (21:26)
[2017-06-01] MEDS: Cipro 250 MG TAB PO SCH (05:26)
[2017-06-01] MEDS: HumaLOG 300 UNITS/3 ML VIAL SC PRN ×2 (05:27→11:49)
[2017-06-01] MEDS: HYDROcodone/Acetaminophen 5/325 mg Tablet PO PRN (05:39)
[2017-06-01] MEDS: Docusate 100 MG CAP PO SCH ×2 (05:41→08:10)
[2017-06-01] MEDS: Insulin NPH/Reg Insulin Hm 300 UNITS/3 ML VIAL SC SCH (08:05)
[2017-06-01] MEDS: hydrOXYzine 25 MG TAB PO SCH (08:05)
[2017-06-01] MEDS: Famotidine 20 MG TAB PO SCH (08:09)
[2017-06-01] MEDS: metFORMIN 500 MG TAB PO SCH (08:09)
[2017-06-01] MEDS: Lisinopril 5 MG TAB PO SCH (08:11)
[2017-06-01] MEDS: Nystatin Powder 15 GM BOT TOP SCH (08:13)
[2017-06-01 08:42] VITALS: TEMP 98.3
--- NOTE | 2017-06-01 11:34 | DIS ---
DATE OF ADMISSION: 05/26/2017 DATE OF DISCHARGE: 06/01/2017 PRIMARY CARE PHYSICIAN: [facility] call admission. DISCHARGE DISPOSITION: Home. PRIMARY DISCHARGE DIAGNOSES: 1. Acute encephalopathy, resolved. 2. Hyponatremia, corrected. 3. Lactic acidosis, resolved. 4. Tinea infection. 5. Urinary tract infection. SECONDARY DISCHARGE DIAGNOSES: Uncontrolled diabetes type 2, gastroesophageal reflux disease, chron ic hepatitis C, hypertension, hypothyroidism, schizophrenia, polysubstance abuse, and medication non compliance. PRIMARY PROCEDURE/OPERATION: None. RADIOLOGICAL INVESTIGATION: CT brain on admission showed no acute intracranial process, chronic isc hemic changes and multifocal remote infarction. Chest x-ray was normal. SIGNIFICANT LABORATORY DATA: WBC 7.4, hemoglobin 13.9, and platelets 183. Sodium 135, potassium 3. 6, BUN 9, creatinine 0.69, calcium 8.6, AST 61, ALT 51, and alkaline phosphatase 142. Hemoglobin A1 c 15.3. Urinalysis suggestive of UTI. Urine drug screen positive for amphetamine and methamphetami ne. Serum drug screen negative. Hepatitis C positive. HIV negative. Urine culture grew Klebsiell a and blood culture was negative. DISCHARGE MEDICATIONS: Xanax 2 mg p.o. t.i.d. p.r.n., Lipitor 20 mg p.o. at bedtime, Cipro 500 mg p .o. b.i.d. for 5 more days, Lotrimin topical application b.i.d., Cymbalta 60 mg p.o. b.i.d., Nexium 20 mg p.o. daily, Diflucan 100 mg p.o. daily for 7 days, gabapentin 2400 mg p.o. at bedtime p.r.n., hydrocortisone topical application b.i.d., NPH insulin 30 units subcu b.i.d., metoprolol succinate 2 5 mg p.o. daily, mirabegron 25 mg p.o. daily, Geodon 20 mg p.o. b.i.d. p.r.n., metformin 500 mg p.o. b.i.d., trazodone 150 mg p.o. at bedtime. CONTRAINDICATIONS: None. CODE STATUS: FULL CODE. INPATIENT CONSULTANTS: . TEST RESULTS PENDING ON DISCHARGE: None. ALLERGIES: No known drug allergy. DISCHARGE PLAN: Post hospital, patient is discharged to home and subsequently patient will follow u p with primary care physician. HOSPITAL COURSE: A 61-year-old female who was admitted by Dr. Moreno. Please see his H\T\P f or further details. Patient was admitted for altered mental status. Patient is living at [place]. Over there, patient was evaluated and subsequently patient was sent to our hospital for further ad mission. Patient was found with urinary tract infection. Her urine drug screen was positive for am phetamine and methamphetamine. Patient was admitted to IM. She was treated with IV fluid, she wa s also dehydrated. Her diabetes was out of control. Upon stabilization, patient was transferred to medical floor. She was having tenia rash around her perineum and that is why we started Diflucan, topical cream was applied. Her diabetes was not well controlled and that is why we added increased dose of insulin. We obtained patient's home medicatio n from her primary care physician. We continued all her home medication while in hospital as well a s on discharge. Patient was evaluated by [facility] and I spoke with [facility] people and they screened her and she is psycholo gically stable for discharge. This patient was given dietary education and diabetes control educati on. Healthy lifestyle measure discussed with the patient. Overall, this patient is medically stabl e for discharge today. The patient is seen and examined at bedside today. PHYSICAL EXAMINATION: VITAL SIGNS: Currently, temperature 98.1, pulse 90, respiratory rate 18, saturation 96%, blood pres sure 124/71, and weight 135 pounds. GENERAL: The patient is currently alert, awake, no acute distress. HEAD: Normocephalic, atraumatic. EYES: Pupils round and reactive to light. Extraocular muscle intact. ENT: Oropharynx within normal limits. Moist mucous membranes. No oral lesions. No pharyngeal lisa thema. LUNGS: Clear. CARDIAC: S1 and S2 regular without any murmur. ABDOMEN: Soft and benign. Skin rash noted around perineum. NEUROLOGIC: Nonfocal examination. All new medication prescription sent to her pharmacy. On the day of discharge, we are also working onto arrange her transportation. Patient is medically stable for discharge today. Total time spent on discharge day 31 minutes.
[2017-06-01] MEDS: Fluconazole 100 MG TAB PO SCH (11:49)
[2017-06-01 12:38] VITALS: BP 91/70
[2017-06-02 12:15] LABS: Hep C PCR-Quant 135000 IU/mL (.)
--- NOTE | 2017-06-06 13:17 | PQF ---
CHUN FREDERICK SALIM NOORJIBHAI MD [id number] CLINICAL DOCUMENTATION CLARIFICATION FORM: POST DISCHARGE Addendum to original discharge summary date: ____ Late entry note date: __ DATE: 05/26/2017 ATTN: DR. GARCIA Please exercise your independent, professional judgment in responding to the clarification form. Clinical indicators are provided on the bottom of this form for your review Please check appropriate box(s): [ ] Encephalopathy: Type: [ ] Acute [ ] Subacute [ ] Chronic Etiology: [ ] Hypertensive [ ] Metabolic [ ] Toxic [ ] Hepatic with Coma [ ] Hepatic w/o Coma [ ] Hypoxic [ ] Septic [ ] Drug induced: [ ] Unspecified [ ] in the setting of underlying dementia [ ] Other (please specify) [ ] Transient Alteration of Awareness [ ] Other diagnosis [ x] Unable to determine In addition, please specify: Present on Admission (POA): [ ] Yes [ ] No [ x ] Unable to determine For continuity of documentation, please document condition throughout progress notes and discharge summary. Thank You. CLINICAL INDICATORS - SIGNS / SYMPTOMS / LABS H&P - ALTERED MENTAL STATUS, POSSIBLY SECONDARY TO DRUG USE DS - ACUTE ENCEPHALOPATHY POSITIVE DRUG SCREEN FOR AMPHETAMINE AND METHAMPHETAMINE PN - ACUTE ENCEPHALOPATHY RISK FACTORS UTI METHAMPHETAMINE ABUSE SCHIZOPHRENIA TREATMENTS: IV FLUID IV ANTIBIOTICS (This form is maintained as a part of the permanent medical record) 2014 [employer]. All Rights Reserved Marie Cote, MAURISIO, [email or web address] [phone] MTDD
== END 2017-06-01 14:26 | disposition home or self-care (01) | DRG 689 ==
LOC: ERS 16:26 → IMCU/EMU 20:06 → T4-A 20:06 → IMCU/EMU 20:10 → 2NO 05-28 14:21 → T4-A 05-29 15:20
PROVIDERS: ADMIT Internal Medicine; ATTEND Internal Medicine
DX: N39.0 Urinary tract infection, site not specified (principal); G93.40 Encephalopathy, unspecified; E87.0 Hyperosmolality and hypernatremia; E87.2 Acidosis; E11.65 Type 2 diabetes mellitus with hyperglycemia; B35.9 Dermatophytosis, unspecified; F20.9 Schizophrenia, unspecified; Z91.14 Patient's other noncompliance with medication regimen; R00.0 Tachycardia, unspecified; Z86.19 Personal history of other infectious and parasitic diseases; K21.9 Gastro-esophageal reflux disease without esophagitis; B18.2 Chronic viral hepatitis C; I10 Essential (primary) hypertension; E03.9 Hypothyroidism, unspecified; E86.0 Dehydration; F15.10 Other stimulant abuse, uncomplicated
CPT/HCPCS: 36415; 36416; 70450; 71010; 80053; 80074; 80306; 80307; 81003; 81015; 83036; 83605; 84484; 85025; 87040; 87077; 87086; 87186; 87389; 87522; 93005; 96360; A4216; J0692; J1630; J2060; S0028